=== PATIENT | female | born 2005 | race Caucasian/White ===

== ENCOUNTER 2025-02-25 00:35 | Emergency (ER) | payer OTHER, SELFPAY ==
[2025-02-25 00:41] VITALS: BP 114/67
[2025-02-25 01:08] LABS: Hematocrit 36.2 % (37.0-47.0); Hemoglobin 13.0 g/dL (12.0-16.0); Mean Corp Hgb Conc. 35.9 g/dL (33.0-37.0); Mean Corpuscular Volume 86.2 fL (81.0-99.0); Nucleated Red Blood Cells % 0 %; Platelet Count 216 10^3/uL (130-400); Red Cell Dist. Width 11.8 % (11.5-14.5)
[2025-02-25 01:24] LABS: ALT (SGPT) 14 U/L (0-35); AST (SGOT) 19 U/L (14-36); Albumin 4.4 g/dl (3.5-5.0); Alkaline Phosphatase 52 U/L (38-126); Blood Urea Nitrogen 10 mg/dl (7-17); Calcium 9.8 mg/dl (8.4-10.2); Carbon Dioxide 21 mmol/L (22-30); Chloride 111 mmol/L (98-107); Glucose 116 mg/dl (70-99); Potassium 3.4 mmol/L (3.5-5.1); Sodium 141 mmol/L (135-145); Total Protein 6.9 g/dl (6.3-8.2); eGFR > 60.00
[2025-02-25 02:42] LABS: HCG, Serum Qualitative Screen Negative
[2025-02-25 03:10] VITALS: BP 112/65
[2025-02-25 04:00] VITALS: BP 117/66
--- NOTE | 2025-02-25 04:37 | ED.GENMED ---
History of Present Illness
General
Chief Complaint: Anxiety
Source: patient and significant other
Time Seen by Provider: 02/25/25 03:56
Nursing documentation reviewed up to this point in time: agreed with
History of Present Illness
History of Present Illness:
Note:
CHIEF COMPLAINT(S)
Chest pain and heart palpitations experienced multiple times daily over the past week.
HISTORY OF PRESENT ILLNESS
The patient is a 19-year-old female who presented with complaints of chest pain and heart palpitations occurring multiple times daily over the past week. The patient has a history of an identified intermittent junctional rhythm from two years ago.
She describes episodes where her heart rate increases significantly, especially when moving from a sitting to a standing position, with her heart rate rising to between 130 and 140 beats per minute. These episodes of palpitations are described by
the patient as coming and going, often accompanied by sensations of feeling flushed.
The patient reports that a previous attempt to undergo further cardiological evaluation, including a stress test and tilt table test, was not completed as her symptoms did not consistently appear on prior electrocardiograms (EKGs). She also
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
The patient denies any recent illness and does not consume caffeine, as advised by her doctor. She admits to experiencing stress, which may contribute to her symptoms. She describes underlying anxiety and a panic disorder, which may exacerbate her
physiological symptoms. The patient reports using propranolol, but not taking it earlier due to perceiving no immediate benefit. No recent significant triggers have been identified for her symptoms.
SOCIAL DETERMINANTS AFFECTING HEALTH
Patient has reported experiencing stress, and has underlying anxiety and panic disorder, which might be affecting her symptoms.
MEDICATIONS
Propranolol (current dosage not specified).
PHYSICAL EXAM
General: Alert, no acute distress.
Skin: Warm, dry.
Head: Normocephalic, atraumatic.
Neck: Supple, trachea midline.
Eye, Ears, Nose, Mouth and Throat: Oral mucosa moist.
Cardiovascular: Normal peripheral perfusion, No edema.
Respiratory: Respirations are non-labored.
Gastrointestinal: Abdomen nondistended.
Back: Normal range of motion, Normal alignment.
Musculoskeletal: Normal range of motion, normal strength.
Neurological: Alert and oriented to person, place, time, and situation, No focal neurological deficit observed.
Psychiatric: Cooperative, appropriate mood & affect.
PLAN
The patient was advised to consider consultation with an adult sign language teacher for further evaluation and possible cardiac testing, including Holter monitoring to better assess her heart rhythm during symptomatic episodes. Discussion about the utility
of the junctional rhythm in terms of its benign nature unless associated with significant symptoms was emphasized. The recommendation includes considering further cardiologic assessment to rule out any underlying structural or electrophysiological
cardiac concerns.
DIFFERENTIAL DIAGNOSIS
The Differential Diagnosis includes, in no particular order and is not limited to:
1. Anxiety or panic disorder-related palpitations
2. Junctional rhythm
3. Postural Orthostatic Tachycardia Syndrome (POTS)
4. Supraventricular tachycardia
5. Premature ventricular contractions
6. Sinus tachycardia
7. Arrhythmogenic right ventricular dysplasia
8. Atrial fibrillation
9. Hyperthyroidism
10. Electrolyte imbalances
Disposition:
SUMMARY OF ENCOUNTER
The patient is a 19-year-old female who presented to the emergency department with a panic attack. She has a known history of panic disorder and junctional rhythm. Upon arrival, the patients electrocardiogram (EKG) showed a junctional rhythm. She
reports not taking her usual medication, hydroxyzine, tonight as it makes her groggy, and she has school in the morning. She has seen cardiologists in the past and is due for future cardiology testing. At the time of evaluation, the patient was
asymptomatic.
DISPOSITION
Patient to be discharged home.
ASSESSMENT
The patient experienced palpitations and a panic attack, with a background history of a known junctional rhythm.
MANAGEMENT OF THE PATIENTS CARE WAS DISCUSSED WITH
The patient was informed about the findings and management plan, including the need for further cardiological assessment in the future.
PLAN
The patient is to be discharged with instructions to follow up with her sign language teacher for further evaluation and cardiac testing. She should continue to manage her panic disorder as previously recommended and take medications as required, being
mindful of their side effects.
PATIENT EDUCATION AND COUNSELING
The patient was counseled on the importance of medication adherence and managing the side effects of her medication for panic disorder, especially around her school schedule. She was advised to follow up with her sign language teacher for further cardiac
evaluation.
FOLLOW-UP INSTRUCTIONS
The patient was instructed to follow up with a sign language teacher for further assessment of her junctional rhythm and any necessary cardiological testing.
MEDICATION RECONCILIATION
Hydroxyzine (not taken tonight due to possible grogginess affecting her school schedule).
MEDICAL DECISION MAKING
- Number and Complexity of Problems Addressed: Chronic conditions affecting care: panic disorder, junctional rhythm.
- Data:
- Category 1: EKG reviewed showing junctional rhythm.
- Risk: Consideration of admission/observation was not necessary as the patient is currently asymptomatic and work-up does not reveal any acute life-threatening processes.
DIAGNOSIS
- F41.0 - Panic Disorder
- I49.8 - Other Specified Cardiac Arrhythmias
Phy Exam
Physical Exam
Physical Exam:
.
Course
Orders/Labs/Results
Orders:
Orders
02/25/25 00:50
Electrocardiogram (*1) Urgent
Reason for Study: Chest Pain
02/25/25 00:51
EKG- Treatment ONCE
02/25/25 01:00
Complete Blood Count/With Diff Urgent
Comprehensive Metabolic Panel Urgent
Free T4 Urgent
HCG, Serum Qualitative Screen Urgent
Thyroid profile [TSH Reflex To Free T4] Urgent
02/25/25 02:17
Add On- LAB Urgent
Comments:: Blood in lab
Tests Added?: HCG
Abnormal Lab Results
02/25/25
01:00
Hct 36.2 L %
(37.0-47.0)
Potassium 3.4 L mmol/L
(3.5-5.1)
Chloride 111 H mmol/L
(98-107)
Carbon Dioxide 21 L mmol/L
(22-30)
Glucose 116 H mg/dl
(70-99)
TSH (Reflex) 5.83 H uIU/ml
(0.47-4.68)
02/25/25 01:00
02/25/25 01:00
Vital Signs
Initial and Last Documented VS:
Initial Vital Signs
Temp Pulse BP Pulse Ox
98.4 F 106 114/67 98
02/25/25 00:41 02/25/25 00:41 02/25/25 00:41 02/25/25 00:41
Last Documented Vital Signs
Temp Pulse Resp BP Pulse Ox
98.4 F 76 19 117/66 99
02/25/25 00:41 02/25/25 04:00 02/25/25 04:00 02/25/25 04:00 02/25/25 04:39
*Pulse Oximetry
SaO2: 99
Oxygen Mode of Delivery: Room air
Patient hypoxic: no
*Critical Care Note
Total Time (30-74mins, 75-104mins- exclusive of procedures): Not Applicable
ED Attending Note
-
Portions of this chart may have been created with voice recognition software.� Occasional wrong word or��sound alike� substitutions may have occurred due to the inherent limitations of voice recognition software.
Discharge Plan
Departure
Patient Disposition: Home (Routine Discharge)
Date of Disposition: 02/25/25
Time of Disposition: 04:38
Patient with high blood pressure during this ER visit?: No
Condition: Good
Discharge Problem:
Anxiety, Junctional rhythm
Instructions: Anxiety, Adult (DC), Panic Disorder (DC)
Referrals:
Chastity Dodge CRNP [Family Provider, Family Practice]
Stand Alone Forms: Back to School
Activity Restrictions/Additional Instructions:
Please have your blood work retested. Your thyroid hormone was slightly elevated. Follow-up with your family doctor for repeat testing.
Thank You for choosing [facility].
It was a pleasure meeting you and taking part in your care. We hope for your continued healing and wellness.
Please read discharge instructions in their entirety. However, they are for general education and may not describe your exact diagnosis at discharge. Information on your ER visit and medical conditions were discussed with you along with appropriate
follow up information...
If indicated, please take your medications as instructed and indicated on discharge paperwork.
Please schedule a follow up appointment as directed. Call to schedule an appointment
Please return to the emergency department with ANY change in, persisting, or worsening of symptoms. If any of your symptoms do not improve, or persist, or become more severe within 6-12 hours, please return to the emergency department for further
care.
Please return to the emergency department if you develop a headache, neck pain/stiffness, fever greater than 100.4F, chest pain, shortness of breath, persistent nausea, vomiting, slurred speech, difficulty walking, numbness/tingling, weakness, signs
of infection or any other symptoms that are worrisome to you.
If you have any questions or concerns please do not hesitate to call the Hospital at or E-mail me directly at [email or web address]
Interventions
Interventions:
*Risk Screen - Suicide Last Done: 02/25/25 00:45
*General Assessment Last Done: 02/25/25 03:19
*Neglect/Abuse Screening Last Done: 02/25/25 00:45
*ED- Fall Risk Assessment Last Done: 02/25/25 03:19
*ED COVID-19 Vaccine History Last Done: 02/25/25 00:45
*Nursing Disposition Last Done: 02/25/25 04:49
ED-Psychological Assessment Last Done: 02/25/25 03:19
Discharge Date and Time
Discharge Date/Time: 02/25/25 04:54
Print Language: KOREAN
== END 2025-02-25 04:54 | disposition home or self-care (01) ==
LOC: EMR 00:35
PROVIDERS: EMERGENCY PHYSICIAN Student in an Organized Health Care Education/Training Program; FAMILY PHYSICIAN Nurse Practitioner Family
DX: F41.9 Anxiety disorder, unspecified (principal); I49.2 Junctional premature depolarization; F41.0 Panic disorder [episodic paroxysmal anxiety]; T43.596A Underdosing of other antipsychotics and neuroleptics, initial encounter; T44.7X6A Underdosing of beta-adrenoreceptor antagonists, initial encounter; Z91.128 Patient's intentional underdosing of medication regimen for other reason
CPT/HCPCS: 99284; 80053; 84439; 84443; 84703; 85025; 93005